=== PATIENT | female | born 1940 | race Hispanic/Latino ===

== ENCOUNTER → 2020-07-29 | Outpatient (CLI) | payer OTHER, MEDICARE ==
[~2020-07-29] MED LIST: ASPIRIN81 MG PO; HYZAAR 100-12.1 EACH PO; IBUPROFEN600 MG PO; LIPITOR20 MG PO; METOPROLOL TART50 MG PO
--- NOTE | 2020-07-29 13:48 | Diagnostic Imaging Report ---
TECHNIQUE: Magnetic resonance imaging of the RIGHT SHOULDER was performed WITHOUT injected contrast. COMPARISON: None available. HISTORY: Right shoulder pain, rotator cuff tear FINDINGS: MUSCLES AND TENDONS: Rotator Cuff: Tendons: Full thickness tear of the supraspinatus tendon and anterior infraspinatus with retraction of the deep fibers approximately 3 cm and superficial fibers 2 cm. Muscles: Atrophy of the supraspinatus and infraspinatus. Biceps Tendon: The long head of the biceps tendon is torn and retracted GLENOHUMERAL JOINT: Glenoid Labrum: Fraying of the labrum. Articular Cartilage: Partial-thickness cartilage loss. AC JOINT AND ACROMION: Mild hypertrophic degenerative changes of the acromioclavicular joint. Subacromial spurring. BONE: No acute fracture. SOFT TISSUES: Fluid in the subacromial subdeltoid bursa IMPRESSION: Supraspinatus and anterior infraspinatus full thickness tear with retraction and atrophy. Mild acromioclavicular arthrosis with subacromial spurring. Long head biceps tendon complete tear with retraction. Signed by: Dr. Rachid Gonsalez M.D. on 07/29/2020 1:44 PM
== END ==
LOC: MRI 11:33
PROVIDERS: ATTEND Specialist
DX: M75.101 Unspecified rotator cuff tear or rupture of right shoulder, not specified as traumatic (principal)